=== PATIENT | female | born 1950 | race Caucasian/White ===

== ENCOUNTER 2024-07-06 09:01 | Emergency (ER) | payer MEDICARE, SELFPAY ==
[2024-07-06 09:06] VITALS: BP 162/74; PULSE 74; TEMP 36.6; O2SAT 97; BMI 21.0
[2024-07-06] MEDS: FAMOTIDINE 20 MG TABLET PO (09:36)
[2024-07-06] MEDS: PREDNISONE 20 MG TABLET 40 MG PO (09:36)
--- NOTE | 2024-07-06 10:26 | ED_ITS ---
HPI - Eye Problem General Chief complaint: Eye Problems Stated complaint: SWOLLEN EYES X A WEEK Time Seen by Provider: 07/06/24 09:22 Source: patient Mode of arrival: walk-in Limitations: no limitations History of Present Illness HPI Narrative: The patient presented to us with a bilateral eye itching that she noticed over the last 1 week she already was seen by her primary care doctor where she was provided with Alberto but it did not help, patient still have itching bilaterally both eyes there is no blurry vision no nausea no vomiting no other concerns The patient also has no drainage or discharge but the itching is around the eye Related Data Previous Rx's ?Medication ?Instructions ?Recorded diphenhydramine HCl 25 mg capsule 25 mg PO TID PRN itc antonio #10 caps 07/06/24 (Benadryl) famotidine 20 mg tablet (Pepcid) 20 mg PO BID #10 tabs 07/06/24 prednisone 20 mg tablet 40 mg (2 x 20 mg) PO DAILY 3 days 07/06/24 #6 tabs Allergies Allergy/AdvReac Type Severity Reaction Status Date / Time No Known Drug Allergies Allergy Verified 07/06/24 09:05 Review of Systems ROS Status of ROS 10 or more systems reviewed and unremark able except as noted in history and below PFSH PFSH Social History Little interest or pleasure in doing things: not at all Feeling down, depressed, or hopeless: not at all Exam Narrative Exam Narrative: Nurses notes and vital signs reviewed and patient is not hypoxic. General: Well-appearing and in no apparent distress. Skin: Warm, dry, no pallor noted. No rash. Head: Normocephalic, atraumatic. Neck: Supple, non-tender. Eye: Pupils are equal, round and EOMI. No scleral icterus. The patient have some mild erythema around the upper and lower eyelid and there is no signs of infection and there is no hotness and the patient has no limitation of movement of the eyes, no discharge or drainage in the eyelashes and no tenderness on palpation Neurological: A&O x4. No cranial nerve dysfunction observed. No truncal ataxia. Moves all extremities. Sensation intact. Psychiatric: Cooperative and interactive. Normal mood and affect. Constitutional Vital Signs, click to edit/add: Last Vital Signs Temp 97.8 F 07/06/24 09:06 Pulse 74 07/06/24 09:06 Resp 20 05/06/25 09:06 BP 162/74 H 07/06/24 09:06 Pulse Ox 97 07/06/24 09:06 O2 Del Method Room Air 07/06/24 09:06 Course Vital Signs Vital signs: Vital Signs Temperature 97.8 F 07/06/24 09:06 Pulse Rate 74 07/06/24 09:06 Respiratory Rate 20 07/06/24 09:06 Blood Pressure 162/74 H 07/06/24 09:06 Pulse Oximetry 97 07/06/24 09:06 Oxygen Delivery Method Room Air 07/06/24 09:06 Temperature 97.8 F 07/06/24 09:06 Pulse Rate 74 07/06/24 09:06 Respiratory Rate 20 07/06/24 09:06 Blood Pressure 162/74 H 07/06/24 09:06 Pulse Oximetry 97 07/06/24 09:06 Oxygen Delivery Method Room Air 07/06/24 09:06 MDM - Eye Problem MDM Narrative Medical decision making narrative: The patient presented with a possibly an allergic reaction although she does not have any exposure to anything new regarding her environment or her food or medication The patient was provided with prednisone for the next 3 days instructed about monitoring her symptoms she is to stop taking Alberto and start taking Benadryl for itching The patient to come back to the ER in case of any worsening of her symptoms for further evaluation The patient is to follow up with primary care physician in next 2-3 days or to return to the emergency department should any of the signs or symptoms worsen or new symptoms develop. The patient agrees with the following Diagnosis and Treatment plan and the patient will be discharged home. Discharge Plan Discharge Chief Complaint: Eye Problems Clinical Impression: Rash due to allergy Patient Disposition: Home, Self-Care Time of Disposition Decision: 09:31 Condition: Good Prescriptions / Home Meds: New famotidine [Pepcid] 20 mg tablet 20 mg PO BID Qty: 10 0RF prednisone 20 mg tablet 40 mg PO DAILY 3 Days Qty: 6 0RF diphenhydramine HCl [Benadryl] 25 mg capsule 25 mg PO TID PRN (Reason: itching) Qty: 10 0RF Print Language: Turkmen Instructions: General Allergic Reaction (ED), Allergy Testing (ED) Additional Instructions: please stop the ALBERTO Discharge Date/Time: 07/06/24 09:48
== END 2024-07-06 09:48 | disposition home or self-care (01) ==
LOC: ER 09:40
PROVIDERS: Emergency Provider Emergency Medicine; PCP Family Medicine
DX: L50.0 Allergic urticaria (principal)
CPT/HCPCS: 99283; J7512

== ENCOUNTER 2025-02-02 09:44 | Emergency (ER) | payer MEDICARE, SELFPAY ==
[2025-02-02 09:48] VITALS: BP 141/66; PULSE 87; TEMP 36.8; O2SAT 98; BMI 19.6
--- NOTE | 2025-02-02 09:55 | ED_ITS ---
HPI HPI - General Adult General Chief complaint: Extremity Problem, Nontraumatic Stated complaint: HIP PAIN, VOMITING Time Seen by Provider: 02/02/25 09:47 Source: patient Mode of arrival: Wheelchair Limitations: no limitations History of Present Illness HPI narrative: 74-year-old female presents for moderate right hip pain. She woke up with it 3 days ago and does not recall any unusual activity or any injury. She has been nauseous because of the pain. She points to the area of the anterior superior iliac spine and along the iliac crest. No pain on the left. Related Data Previous Rx's ?Medication ?Instructions ?Recorded diphenhydramine HCl 25 mg capsule 25 mg PO TID PRN itc antonio #10 caps 07/06/24 (Benadryl) famotidine 20 mg tablet (Pepcid) 20 mg PO BID #10 tabs 07/06/24 prednisone 20 mg tablet 40 mg (2 x 20 mg) PO DAILY 3 days 07/06/24 #6 tabs etodolac 300 mg capsule 300 mg PO Q8H PRN pain #20 c aps 02/02/25 Allergies Allergy/AdvReac Type Severity Reaction Status Date / Time No Known Drug Allergies Allergy Verified 07/06/24 09:05 Review of Systems ROS Narrative A ten point review of systems is negative except as noted above. PFSH PFSH Social History Little interest or pleasure in doing things: not at all Feeling down, depressed, or hopeless: not at all Exam Narrative Exam Narrative: Nurses note and vital signs reviewed General:The patient appears in no apparent distress. Patient is resting on cart. Skin:Warm, dry, no pallor noted.There is no rash noted. Head:Normocephalic, atraumatic Eye: Normal conjunctiva, no drainage Ears, Nose, Mouth, and Throat: oral mucosa is moist. Nares patent. Cardiovascular:Regular Rate and Rhythm Respiratory:Patient is in no distress, no accessory muscle use, lungs are clear to auscultation, no wheezing, rales or rhonchi Back:non-tender, including the lumbar spine area GI: Soft and nontender Musculoskeletal: The right hip is examined. She has no tenderness over the greater trochanter region. She has tenderness at the anterior superior iliac spine and the area just posterior to it. There is no bruise rash or abrasion present Neurological:A&O, normal speech Psychiatric:Cooperative Constitutional Vital Signs, click to edit/add: Last Vital Signs Temp 98.2 F 02/02/25 09:48 Pulse 76 02/02/25 10:54 Resp 18 02/02/25 10:54 BP 128/57 02/02/25 10:54 Pulse Ox 96 02/02/25 10:54 O2 Del Method Room Air 02/02/25 09:48 Course Vital Signs Vital signs: Vital Signs Temperature 98.2 F 02/02/25 09:48 Pulse Rate 87 02/02/25 09:48 Respiratory Rate 18 02/02/25 09:48 Blood Pressure 141/66 02/02/25 09:48 Pulse Oximetry 98 02/02/25 09:48 Oxygen Delivery Method Room Air 02/02/25 09:48 Temperature 98.2 F 02/02/25 09:48 Pulse Rate 76 02/02/25 10:54 Respiratory Rate 18 02/02/25 10:54 Blood Pressure 128/57 02/02/25 10:54 Pulse Oximetry 96 02/02/25 10:54 Oxygen Delivery Method Room Air 02/02/25 09:48 Medical Decision Making MDM Narrative Medical decision making narrative: X-rays are negative per radiologist. She was given IM Toradol and prescribed Lodine. Treatment diagnosis and follow-up were discussed with the patient. Differential Diagnosis Differential Diagnosis: Arthritis, tendinitis, muscle strain Imaging Data Right hip x-ray: Radiologist's impression: ITS Impressions Hip X-Ray 02/02/25 10:36 IMPRESSION: NO ACUTE BONY FINDINGS. Impression dictated by: Jahaira Douglas M.D. 02/02/2025 10:49 AM Dictation Location: [place] [address] Electronically authenticated by: [id number] Y Date: 02/02/2025 10:49 Discharge Plan Discharge Chief Complaint: Extremity Problem, Nontraumatic Clinical Impression: Hip pain, right Patient Disposition: Home, Self-Care Time of Disposition Decision: 10:56 Condition: Good Mode of Transportation: Private Vehicle Prescriptions / Home Meds: New etodolac 300 mg capsule 300 mg PO Q8H PRN (Reason: pain) Qty: 20 0RF No Action famotidine [Pepcid] 20 mg tablet 20 mg PO BID Qty: 10 0RF prednisone 20 mg tablet 40 mg PO DAILY 3 Days Qty: 6 0RF diphenhydramine HCl [Benadryl] 25 mg capsule 25 mg PO TID PRN (Reason: itching) Qty: 10 0RF Print Language: Citizen Of [place] Instructions: Hip Pain (ED) Referrals: Evangelina Bone DO [Primary Care Provider] - 1 week
[2025-02-02] MEDS: ONDANSETRON 4 MG RAPDIS TABLET SL (10:06)
--- NOTE | 2025-02-02 10:36 | XR_ITS ---
The [address] [address] Patient Name: ROSEMARIE FIELDS MRN: [id number] date: 1950 Sex: F Assigned Patient Location: ED.MAIN Current Patient Location: ED.MAIN Accession/Order Number: [id number] Exam Date: 02/02/2025 10:28 Report Date: 02/02/2025 10:49 At the request of: DELMAR SALAS MD Procedure: XR hip RT min 2V RIGHT HIP - 2 views: CLINICAL HISTORY: Atraumatic right hip pain for the past few days COMPARISON: None AP and frog-lateral views were obtained. There is osteopenia. There is no acute fracture or dislocation. The hip joint space is maintained. No prominent hypertrophy is seen. There is minor sclerosis at the SI joint. There are no significant soft tissue abnormalities. XR/XR hip RT min 2V IMPRESSION: NO ACUTE BONY FINDINGS. Impression dictated by: Jahaira Douglas M.D. 02/02/2025 10:49 AM Dictation Location: [place] [address] Electronically authenticated by: [id number] Y Date: 02/02/2025 10:49
[2025-02-02 10:54] VITALS: BP 128/57; PULSE 76; O2SAT 96
[2025-02-02] MEDS: KETOROLAC TROMETHAMINE 60 MG/2 ML VIAL IM (11:07)
== END 2025-02-02 11:19 | disposition home or self-care (01) ==
PROVIDERS: Emergency Provider Emergency Medicine; PCP Family Medicine
DX: M25.551 Pain in right hip (principal)
CPT/HCPCS: 73502; 96372; 99284; J1885; Q0162